=== PATIENT | male | born 1980 | race Two or more races ===

== ENCOUNTER 2022-07-27 03:02 | Emergency (ER) | payer SELFPAY ==
[2022-07-27] MEDS ORDERED: ACETAMINOPHEN/CODEINE 300-30 MG TABLET PO ONE (05:00)
[2022-07-27] MEDS ORDERED: IBUPROFEN 600 MG TABLET PO ONE (05:00)
[2022-07-27] MEDS ORDERED: IBUP-1554 PO (05:50)
[2022-07-27] MEDS ORDERED: ACET-2080 PO (05:50)
== END 2022-07-27 06:08 | disposition home or self-care (01) ==
LOC: EMS 03:05
DX: K02.9 Dental caries, unspecified (principal); K08.89 Other specified disorders of teeth and supporting structures
CPT/HCPCS: 99283